=== PATIENT | female | born 1955 | race Caucasian/White ===

== ENCOUNTER 2017-01-18 12:49 | Emergency (ER) | payer BC ==
[~2017-01-18] VITALS: Ht 162.6 cm; Wt 80.0 kg
[2017-01-18 12:51] VITALS: BP 179/80; PULSE 63; RESP 14; TEMP 97.7; O2SAT 98
[2017-01-18] MEDS ORDERED: SODIUM CHLOR 0.9% 1000 ML INJ 1,000 ML IV ONE (13:31)
--- NOTE | 2017-01-18 13:35 | PD ---
HPI Chief Complaint: Complaint Time Seen by Provider: 13:20 Travel History International Travel<30 days: No Contact w/Intl Traveler<30days: No Traveled to known affect area: No History of Present Illness HPI 61-year-old female reports a history of chronic disease currently on vacation from [place]. She presents for evaluation primarily of left lower back pain. Symptoms started this morning. The pain is an aching pain that is constant with no obvious aggravating or relieving factors. She says that it feels like "kidney pain." She endorses some nausea as well. She has had a cough for over a week and she was started on amoxicillin, prednisone and albuterol for bronchitis an urgent care center 6 days ago. The cough is improved but has persisted. She was advised by the urgent care center to come here for further evaluation because of the left lower back pain. She also endorses decreased urinary output. Denies any vomiting, fevers or chills. She has no other complaints. PFSH Past Medical History Narrative Medical Chronic kidney disease Respiratory: Yes ?: Not Past Surgical History Hysterectomy: Yes Social History Alcohol Use: No Tobacco Use: No Allergies-Medications (Allergen,Severity, Reaction): Coded Allergies: No Known Allergies (Unverified , 01/18/17) Reported Meds & Prescriptions Reported Meds & Active Scripts Active Reported Famotidine 40 Mg Tab 40 Mg PO DAILY Estrace Vaginal (Estradiol) 0.01% Cream 1 Appl VAGINAL HS Mucinex Dm (Dextromethorphan-Guaifenesin) 1 Tab Tab BID Gabapentin 100 Mg Cap 100 Mg PO TID Symbicort Inh (Budesonide/Formoterol Fumarate) 80-4.5 Mcg/Act Aero 1 Puff INH Q12HR Vitamin D3 (Cholecalciferol) 50,000 Unit Cap 50,000 Units PO Q7D Nasacort Allergy 24Hr (Triamcinolone Acetonide (Nasal) 55 Mcg/Act Spr Proctosol Hc (Hydrocortisone Rectal) 2.5% Cream 1 Applic RECTAL BID PRN Anucort-Hc (Hydrocortisone Acetate (Rectal) 25 Mg Sup Sumatriptan (Sumatriptan Succinate) 50 Mg Tab 50 Mg PO ONCE PRN If a satisfactory response has not been obtained at 2 hours, a second dose may be administered Lorazepam 2 Mg Tab 2 Mg PO DAILY PRN Metoprolol Succinate ER 24 HR (Metoprolol Succinate) 25 Mg Tab 25 Mg PO DAILY Escitalopram (Escitalopram Oxalate) 20 Mg Tab 20 Mg PO DAILY Topiramate 25 Mg Tab 25 Mg PO DIRECTED Amitriptyline (Amitriptyline HCl) 25 Mg Tab 25 Mg PO HS Omeprazole 20 Mg Tab 20 Mg PO DAILY Review of Systems Except as stated in HPI: all other systems reviewed are Neg Physical Exam Narrative GENERAL: Well developed well-nourished female in no acute distress SKIN: Warm and dry. No rash HEAD: Atraumatic. Normocephalic. EYES: Pupils equal and round. No scleral icterus. No injection or drainage. ENT: No nasal bleeding or discharge. Mucous membranes pink and moist. NECK: Trachea midline. No JVD. CARDIOVASCULAR: Regular rate and rhythm. No murmur appreciated. RESPIRATORY: No accessory muscle use. Clear to auscultation. Breath sounds equal bilaterally. No crackles no wheezing or rhonchi GASTROINTESTINAL: Abdomen soft, non-tender, nondistended. Hepatic and splenic margins not palpable. MUSCULOSKELETAL: No obvious deformities. There is some tenderness to palpation to lower back. There is no thoracic or lumbar midline tenderness. There is no CVA tenderness. No lower extremity edema. NEUROLOGICAL: Awake and alert. No obvious cranial nerve deficits. Motor grossly within normal limits. Normal speech. PSYCHIATRIC: Appropriate mood and affect; insight and judgment normal. Data Data Last Documented VS Vital Signs Date Time Temp Pulse Resp B/P Pulse Ox O2 Delivery O2 Flow Rate FiO2 01/18/17 12:51 97.7 63 14 179/80 98 Room Air Orders Complete Blood Count With Diff (01/18/17 13:31) Comprehensive Metabolic Panel (01/18/17 13:31) Urinalysis - C+S If Indicated (01/18/17 13:31) Ct Abd/Pel W/O Iv Contrast (01/18/17 13:31) Ondansetron Inj (Zofran Inj) (01/18/17 13:45) Sodium Chlor 0.9% 1000 Ml Inj (Ns 1000 M (01/18/17 13:31) Chest, Single Ap (01/18/17 ) Labs Laboratory Tests Test 01/18/17 01/18/17 14:00 14:45 White Blood Count 15.1 TH/MM3 Red Blood Count 3.86 MIL/MM3 Hemoglobin 13.2 GM/DL Hematocrit 38.5 % Mean Corpuscular Volume 99.8 FL Mean Corpuscular Hemoglobin 34.2 PG Mean Corpuscular Hemoglobin 34.3 % Concent Red Cell Distribution Width 13.5 % Platelet Count 246 TH/MM3 Mean Platelet Volume 7.9 FL Neutrophils (%) (Auto) 81.9 % Lymphocytes (%) (Auto) 10.6 % Monocytes (%) (Auto) 7.1 % Eosinophils (%) (Auto) 0.1 % Basophils (%) (Auto) 0.3 % Neutrophils # (Auto) 12.4 TH/MM3 Lymphocytes # (Auto) 1.6 TH/MM3 Monocytes # (Auto) 1.1 TH/MM3 Eosinophils # (Auto) 0.0 TH/MM3 Basophils # (Auto) 0.0 TH/MM3 CBC Comment DIFF FINAL Differential Comment Sodium Level 142 MEQ/L Potassium Level 4.1 MEQ/L Chloride Level 104 MEQ/L Carbon Dioxide Level 28.5 MEQ/L Anion Gap 10 MEQ/L Blood Urea Nitrogen 29 MG/DL Creatinine 1.84 MG/DL Estimat Glomerular Filtration 28 ML/MIN Rate Random Glucose 101 MG/DL Calcium Level 8.8 MG/DL Total Bilirubin 0.3 MG/DL Aspartate Amino Transf 71 U/L (AST/SGOT) Alanine Aminotransferase 140 U/L (ALT/SGPT) Alkaline Phosphatase 120 U/L Total Protein 7.4 GM/DL Albumin 3.7 GM/DL Urine Color LIGHT-YELLOW Urine Turbidity CLEAR Urine pH 6.5 Urine Specific [place] 1.010 Urine Protein NEG mg/dL Urine Glucose (UA) NEG mg/dL Urine Ketones NEG mg/dL Urine Occult Blood NEG Urine Nitrite NEG Urine Bilirubin NEG Urine Urobilinogen LESS THAN 2.0 MG/DL Urine Leukocyte Esterase NEG Urine WBC LESS THAN 1 /hpf Urine Squamous Epithelial 1 /hpf Cells Microscopic Urinalysis Comment CULT NOT INDICATED MDM Medical Decision Making Medical Screen Exam Complete: Yes Emergency Medical Condition: Yes Medical Record Reviewed: Yes Differential Diagnosis Acute kidney injury, pyelonephritis, muscular pain from coughing, bronchitis, pneumonia, dehydration Narrative Course This is a 61-year-old female from [place] reports cough for over a week, on approximately 6 days of prednisone and amoxicillin albuterol, comes in now with decreased urine output over the past few days as well as left lower back pain with a concern of kidney pathology. Plan is for basic lab work, CT abdomen and pelvis as well as chest x-ray. Her labwork imaging studies have been reviewed. WBC elevated at 15.1 likely secondary to prednisone use. CMP reveals BUN 29, creatinine 1.84, likely secondary to her history of chronic kidney disease. Nonspecifically elevated AST and ALT. The patient will be given copy of her CMP report and advised to follow up with primary care physician for repeat liver enzymes when she returns home. Urinalysis is normal with no evidence of ketones or infection. She feels improved after the administration of Zofran and fluids. Chest x-ray reveals no pneumonia. I suspect that she has a viral upper respiratory infection and musculoskeletal back pain likely secondary to Coughing. Recommended discontinuing the amoxicillin. She is stable for discharge. Diagnosis Primary Impression: Bronchitis Additional Instructions: Quit taking the amoxicillin. Can continue taking prednisone and albuterol as prescribed. Phenergan for nausea. Stay well hydrated well-nourished. As discussed, your liver enzymes were mildly elevated and should be rechecked when you return home. Return for any acutely new or worsening symptoms. Med/Other Pt SpecificInfo: Prescription(s) given Scripts Promethazine (Phenergan)25 Mg Tab25 Mg PO Q6H PRN (Nausea/Vomiting) #20 TAB Ref 0 Prov:Felipe Martin MD 01/18/17 Disposition: 01 DISCHARGE HOME Condition: Stable Enio Ann Jan 18, 2017 13:34
[2017-01-18] MEDS ORDERED: ONDANSETRON HCL 4 MG/2 ML VIAL IVP ONE (13:45)
[2017-01-18] MEDS ORDERED: GABA100C4 PO (13:46)
[2017-01-18] MEDS ORDERED: SYMB80AE INH (13:46)
[2017-01-18] MEDS ORDERED: FAMO40TA PO (13:46)
[2017-01-18] MEDS ORDERED: CHOL1CAP34 PO (13:46)
[2017-01-18] MEDS ORDERED: DEXT1TAB (13:46)
[2017-01-18] MEDS ORDERED: LORA2TAB7 PO (13:46)
[2017-01-18] MEDS ORDERED: OMEP20TA PO (13:46)
[2017-01-18] MEDS ORDERED: PROC2.5C RECTAL (13:46)
[2017-01-18] MEDS ORDERED: ANUC25SU (13:46)
[2017-01-18] MEDS ORDERED: ESTR42.5V VAGINAL (13:46)
[2017-01-18] MEDS ORDERED: METO25TA6 PO (13:46)
[2017-01-18] MEDS ORDERED: TRIA1SPR5 (13:46)
[2017-01-18] MEDS ORDERED: AMIT25TA9 PO (13:46)
[2017-01-18] MEDS ORDERED: ESCI20TA PO (13:46)
[2017-01-18] MEDS ORDERED: SUMA50TA2 PO (13:46)
[2017-01-18] MEDS ORDERED: TOPI1TAB97 PO (13:46)
--- NOTE | 2017-01-18 14:10 | RADRPT ---
EXAM DATE/TIME: 01/18/2017 13:46 [facility] COMPARISON: No previous studies available for comparison. INDICATIONS : Cough. Short of breath. MEDICAL HISTORY : None. SURGICAL HISTORY : None. ENCOUNTER: Initial ACUITY: 2 days PAIN SCORE: 0/10 LOCATION: Bilateral chest FINDINGS: A single view of the chest demonstrates the lungs to be symmetrically aerated without evidence of mas s, infiltrate or effusion. The cardiomediastinal contours are unremarkable. Osseous structures are intact. CONCLUSION: No acute disease. Sergio Nelson MD on January 18, 2017 at 14:07 Board Certified Radiologist. This report was verified electronically.
[2017-01-18 14:14] LABS: AUTOMATED NEUTROPHIL # 12.4 TH/MM3 (1.8-7.7); BASOPHIL % 0.3 % (0.0-2.0); EOSINOPHIL % 0.1 % (0.0-4.0); HEMATOCRIT 38.5 % (35.0-46.0); HEMO FLAGS DIFF FINAL; LYMPH % 10.6 % (9.0-44.0); LYMPHOCYTE # 1.6 TH/MM3 (1.0-4.8); MEAN CELL VOLUME 99.8 FL (80.0-100.0); MEAN CORPUSCULAR HEMOGLOBIN 34.2 PG (27.0-34.0); MEAN CORPUSCULAR HGB CONC 34.3 % (32.0-36.0); MONO % 7.1 % (0.0-8.0); NEUT % 81.9 % (16.0-70.0); PLATELET COUNT 246 TH/MM3 (150-450); RED BLOOD COUNT 3.86 MIL/MM3 (4.00-5.30); RED CELL DISTRIBUTION WIDTH 13.5 % (11.6-17.2); WHITE BLOOD COUNT 15.1 TH/MM3 (4.0-11.0)
[2017-01-18 14:29] LABS: ALT (GPT) 140 U/L (10-53); ANION GAP 10 MEQ/L (5-15); AST (GOT) 71 U/L (15-37); BICARBONATE 28.5 MEQ/L (21.0-32.0); BLOOD UREA NITROGEN 29 MG/DL (7-18); CHLORIDE 104 MEQ/L (98-107); GLOMERULAR FILTRATION RATE 28 ML/MIN (>89); POTASSIUM 4.1 MEQ/L (3.5-5.1); SODIUM (NA) 142 MEQ/L (136-145)
[2017-01-18 14:31] LABS: ALKALINE PHOSPHATASE 120 U/L (45-117); TOTAL BILIRUBIN ADULT 0.3 MG/DL (0.2-1.0)
--- NOTE | 2017-01-18 14:46 | RADRPT ---
EXAM DATE/TIME: 01/18/2017 14:06 [facility] COMPARISON: No previous studies available for comparison. INDICATIONS : Left lower flank pain starting today. ORAL CONTRAST: No oral contrast ingested. RADIATION DOSE: 7.25 CTDIvol (mGy) MEDICAL HISTORY : Chronic renal disease SURGICAL HISTORY : Hysterectomy. ENCOUNTER: Initial ACUITY: 1 day PAIN SCALE: 5/10 LOCATION: Left Abdomen TECHNIQUE: Volumetric scanning of the abdomen and pelvis was performed. Using automated exposure control and ad justment of the mA and/or kV according to patient size, radiation dose was kept as low as reasonably achievable to obtain optimal diagnostic quality images. FINDINGS: LOWER LUNGS: The visualized lower lungs are clear. LIVER: Homogeneous density without lesion. There is no dilation of the biliary tree. No calcified gallston es. SPLEEN: Normal size without lesion. PANCREAS: Within normal limits. KIDNEYS: Normal in size and shape. There is no mass, stone, or hydronephrosis. ADRENAL GLANDS: Within normal limits. VASCULAR: There is no aortic aneurysm. BOWEL/MESENTERY: The stomach, small bowel, and colon demonstrate no acute abnormality. There is no free intraperitone al air or fluid. ABDOMINAL WALL: Within normal limits. RETROPERITONEUM: There is no lymphadenopathy. BLADDER: No wall thickening or mass. REPRODUCTIVE: The patient is status post hysterectomy. INGUINAL: There is no lymphadenopathy or hernia. MUSCULOSKELETAL: Within normal limits for patient age. CONCLUSION: No acute disease. Sergio Nelson MD on January 18, 2017 at 14:40 Board Certified Radiologist. This report was verified electronically.
[2017-01-18 15:10] LABS: BLOOD, URINE NEG (NEG); GLUCOSE,URINE NEG (NEG); KETONE, URINE NEG (NEG); NITRITE,URINE NEG (NEG); PH, URINE 6.5 (5.0-8.5); SQUAMOUS EPITHELIAL CELL URINE 1 /hpf (0-5); URINE COLOR LIGHT-YELLOW (YELLW/STRAW)
[2017-01-18 15:14] LABS: COMMENT (UR) CULT NOT INDICATED; CULTURE IF INDICATED CULT NOT INDICATED
[2017-01-18] MEDS ORDERED: PROM25TA5 PO (15:21)
== END 2017-01-18 16:02 | disposition home or self-care (01) ==
LOC: NEPB 12:49
DX: J40 Bronchitis, not specified as acute or chronic (principal); N18.9 Chronic kidney disease, unspecified; Z90.710 Acquired absence of both cervix and uterus
CPT/HCPCS: 71010; 74176; 80053; 81001; 85025; 96361; 96374; 99284; J2405; J7030